=== PATIENT | male | born 1955 | race Hispanic/Latino ===

== ENCOUNTER 2018-02-04 18:19 | Inpatient (IN) | payer MEDICARE ==
[~2018-02-04] VITALS: Ht 167.6 cm; Wt 93.9 kg
[2018-02-04] MEDS ORDERED: MAG HYDROX/AL HYDROX/SIMETH ES 30 ML SUSP UDCUP ONE (19:26)
[2018-02-04] MEDS ORDERED: ONDANSETRON HCL 4 MG/2 ML VIAL ONE (19:26)
[2018-02-04] MEDS ORDERED: LIDOCAINE HCL 2% VISCOUS 15 ML UDCUP ONE (19:27)
[2018-02-04] MEDS ORDERED: KETOROLAC TROMETHAMINE 30MG/ML ONE (19:27)
[2018-02-04 19:54] LABS: BASOPHILS % (AUTO) 0.2 % (0.0-5.0); EOSINOPHILS % (AUTO) 0.2 % (0.0-8.0); HEMATOCRIT 41.9 % (42-54); LYMPHOCYTES % (AUTO) 9.8 % (21.0-51.0); MEAN CORPUSCULAR HEMOGLOBIN 30.7 pg (27.0-33.0); MEAN CORPUSCULAR HGB CONC 33.5 g/dL (32.0-36.0); MEAN CORPUSCULAR VOLUME 91.4 fL (79-99); MONOCYTES % (AUTO) 9.1 % (3.0-13.0); NEUTROPHILS % (AUTO) 80.7 % (40.0-77.0); PLATELET COUNT (AUTO) 207 K/uL (130-400); RED BLOOD CELL COUNT(AUTO) 4.58 MIL/uL (4.50-6.20); WHITE BLOOD COUNT (AUTO) 8.6 K/uL (4.8-10.8)
[2018-02-04 20:06] LABS: POTASSIUM 3.4 mmol/L (3.5-5.1)
[2018-02-04 20:11] LABS: ALBUMIN 3.2 g/dL (3.5-5.0); BILIRUBIN,TOTAL 5.1 mg/dL (0.2-1.0); TOTAL PROTEIN, SERUM 7.1 g/dL (6.0-8.3)
[2018-02-04 21:50] LABS: APPEARANCE,URINE CLOUDY (CLEAR); BILIRUBIN,URINE MODERATE (NEGATIVE); COLOR,URINE ORANGE (YELLOW); GLUCOSE, URINE (UA) NEGATIVE (NEGATIVE); KETONES,URINE NEGATIVE (NEGATIVE); LEUKOCYTE ESTERASE ,URINE NEGATIVE (NEGATIVE); NITRATE,URINE NEGATIVE (NEGATIVE); OCCULT BLOOD,URINE SMALL (NEGATIVE); PH,URINE 5.5 (5.0-8.0); PROTEIN,URINE TRACE (NEGATIVE)
[2018-02-04 21:56] LABS: BACTERIA,URINE Few /HPF (None Seen); MUCUS,URINE Few LPF (None Seen); RBC,URINE 0-1 /HPF (0-1); SQUAMOUS EPITHELIAL CELL,UR Rare /HPF (0-2)
[2018-02-04 21:57] LABS: AMORPHOUS SEDIMENT,UR Few /LPF (None Seen); HYALINE CASTS, URINE 0-1 /LPF (0-1 /LPF)
[2018-02-05] VITALS (20 sets, daily range): BP systolic 94–163; BP diastolic 52–78
[2018-02-05] MEDS: SODIUM CHLORIDE 0.9% 1000ML 1,000 ML IV SCH ×3 (00:55→18:02)
[2018-02-05] MEDS ORDERED: ONDANSETRON HCL 4 MG/2 ML VIAL IV PRN (01:00)
[2018-02-05] MEDS ORDERED: CYCL5TAB PO (02:02)
[2018-02-05] MEDS ORDERED: SIMV20TA6 PO (02:02)
[2018-02-05] MEDS ORDERED: IBUP-2070 PO (02:02)
[2018-02-05] MEDS ORDERED: PANT40TA25 PO (02:02)
[2018-02-05] MEDS ORDERED: TRAM50TA4 PO (02:02)
[2018-02-05] MEDS ORDERED: LISI1TAB11 PO (02:02)
[2018-02-05] MEDS ORDERED: LIDOCAINE HCL-MPF 1% 2ML VIAL IVP PRN (05:45)
[2018-02-05] MEDS: POTASSIUM CHLORIDE 20MEQ/100ML 100 ML IV PRN (06:15)
[2018-02-05] MEDS ORDERED: CYCLOBENZAPRINE HCL 10 MG TABLET PO PRN (07:30)
[2018-02-05] MEDS: FAMOTIDINE/PF 20 MG/2 ML VIAL IV SCH ×2 (08:18→19:36)
[2018-02-05] MEDS: HYDROCHLOROTHIAZIDE 25 MG TABLET PO SCH (08:18)
[2018-02-05] MEDS: LISINOPRIL 20 MG TABLET PO SCH (08:18)
[2018-02-05] MEDS: CEFTRIAXONE SODIUM 1 GM IVP SCH (08:18)
[2018-02-05 08:47] LABS: CHOLESTEROL 182 mg/dL (<200); HDL CHOLESTEROL 65 mg/dL (29-71); LDL DIRECT 125 mg/dL (0-99); TRIGLYCERIDES 45 mg/dL (30-200)
[2018-02-05] MEDS ORDERED: GADODIAMIDE 10 MMOL/20 ML ML IV ONE (13:14)
[2018-02-05] MEDS ORDERED: MORPHINE SULFATE 4 MG/1ML SYG ONE (13:25)
[2018-02-05] MEDS ORDERED: MIDAZOLAM HCL 1 MG/ML 2ML VIAL ONE (14:38)
[2018-02-05] MEDS ORDERED: FENTANYL CITRATE PF 50 MCG/1 ML 2ML VIAL ONE (14:39)
[2018-02-05] MEDS ORDERED: PROPOFOL 1000 MG/100 ML 100 ML IV ONE (14:39)
[2018-02-05] MEDS ORDERED: GLYCOPYRROLATE 0.2 MG/ML 5 ML VIAL ONE (14:40)
[2018-02-05] MEDS ORDERED: LIDOCAINE HCL-MPF 2% 5ML VIAL ONE (14:40)
[2018-02-05] MEDS ORDERED: IOHEXOL-350 50ML VIAL IV ONE (14:57)
[2018-02-05] MEDS ORDERED: ACETAMINOPHEN 325 MG TAB ONE (19:35)
[2018-02-05] MEDS: SIMVASTATIN 20 MG TABLET PO SCH (19:36)
[2018-02-06] MEDS: SODIUM CHLORIDE 0.9% 1000ML 1,000 ML IV SCH ×3 (01:53→21:36)
[2018-02-06 04:10] VITALS: BP 142/70
[2018-02-06 05:06] LABS: BASOPHILS % (AUTO) 0.7 % (0.0-5.0); EOSINOPHILS % (AUTO) 0.3 % (0.0-8.0); LYMPHOCYTES % (AUTO) 18.8 % (21.0-51.0); MEAN CORPUSCULAR HEMOGLOBIN 30.6 pg (27.0-33.0); MEAN CORPUSCULAR HGB CONC 33.6 g/dL (32.0-36.0); MEAN CORPUSCULAR VOLUME 91.2 fL (79-99); MONOCYTES % (AUTO) 9.1 % (3.0-13.0); NEUTROPHILS % (AUTO) 71.1 % (40.0-77.0); PLATELET COUNT (AUTO) 188 K/uL (130-400); RED BLOOD CELL COUNT(AUTO) 4.28 MIL/uL (4.50-6.20); WHITE BLOOD COUNT (AUTO) 6.2 K/uL (4.8-10.8)
[2018-02-06 05:17] LABS: ALBUMIN 2.6 g/dL (3.5-5.0); BILIRUBIN,TOTAL 6.1 mg/dL (0.2-1.0); POTASSIUM 3.7 mmol/L (3.5-5.1)
[2018-02-06] MEDS: CEFTRIAXONE SODIUM 1 GM IVP SCH (06:42)
[2018-02-06 08:00] VITALS: BP 110/58
[2018-02-06] MEDS: HYDROCHLOROTHIAZIDE 25 MG TABLET PO SCH (09:00)
[2018-02-06] MEDS: LISINOPRIL 20 MG TABLET PO SCH (09:00)
[2018-02-06] MEDS: FAMOTIDINE/PF 20 MG/2 ML VIAL IV SCH ×2 (09:30→21:35)
[2018-02-06 11:34] VITALS: BP 114/61
[2018-02-06 16:00] VITALS: BP 120/71
[2018-02-06] MEDS ORDERED: HYDRALAZINE HCL 20 MG/ML VIAL IV PRN (18:15)
[2018-02-06 20:00] VITALS: BP 135/72
[2018-02-06] MEDS: SIMVASTATIN 20 MG TABLET PO SCH (21:35)
[2018-02-06 23:45] VITALS: BP 119/61
[2018-02-07 04:00] VITALS: BP 115/52
[2018-02-07 04:39] LABS: HEMATOCRIT 38.7 % (42-54); MEAN CORPUSCULAR HEMOGLOBIN 31.9 pg (27.0-33.0); MEAN CORPUSCULAR HGB CONC 34.7 g/dL (32.0-36.0); PLATELET COUNT (AUTO) 220 K/uL (130-400); RED BLOOD CELL COUNT(AUTO) 4.21 MIL/uL (4.50-6.20); RED CELL DISTRIBUTION WIDTH 14.1 % (11.0-15.5); WHITE BLOOD COUNT (AUTO) 5.4 K/uL (4.8-10.8)
[2018-02-07 04:49] LABS: ALBUMIN 2.4 g/dL (3.5-5.0); BILIRUBIN,TOTAL 2.5 mg/dL (0.2-1.0); POTASSIUM 3.6 mmol/L (3.5-5.1)
[2018-02-07] MEDS: CEFTRIAXONE SODIUM 1 GM IVP SCH (06:37)
[2018-02-07] MEDS: MORPHINE SULFATE 2 MG/ML 1ML SYG IV PRN (06:49)
[2018-02-07 07:00] VITALS: BP 154/96
[2018-02-07] MEDS: LISINOPRIL 20 MG TABLET PO SCH (09:00)
[2018-02-07] MEDS: HYDROCHLOROTHIAZIDE 25 MG TABLET PO SCH (09:00)
[2018-02-07] MEDS: FAMOTIDINE/PF 20 MG/2 ML VIAL IV SCH ×2 (09:01→21:01)
[2018-02-07] MEDS: SODIUM CHLORIDE 0.9% 1000ML 1,000 ML IV SCH ×2 (09:39→17:53)
[2018-02-07 11:56] VITALS: BP 147/69
[2018-02-07 16:10] VITALS: BP 144/73
[2018-02-07 19:59] VITALS: BP 148/79
[2018-02-07] MEDS: SIMVASTATIN 20 MG TABLET PO SCH (21:01)
[2018-02-07 23:53] VITALS: BP 114/63
[2018-02-08] VITALS (19 sets, daily range): BP systolic 129–147; BP diastolic 68–85
[2018-02-08 04:27] LABS: BASOPHILS % (AUTO) 1.3 % (0.0-5.0); EOSINOPHILS % (AUTO) 2.1 % (0.0-8.0); HEMATOCRIT 39.8 % (42-54); LYMPHOCYTES % (AUTO) 24.7 % (21.0-51.0); MEAN CORPUSCULAR HEMOGLOBIN 31.2 pg (27.0-33.0); MEAN CORPUSCULAR HGB CONC 34.3 g/dL (32.0-36.0); MONOCYTES % (AUTO) 9.4 % (3.0-13.0); NEUTROPHILS % (AUTO) 62.5 % (40.0-77.0); PLATELET COUNT (AUTO) 214 K/uL (130-400); RED BLOOD CELL COUNT(AUTO) 4.38 MIL/uL (4.50-6.20); RED CELL DISTRIBUTION WIDTH 13.9 % (11.0-15.5); WHITE BLOOD COUNT (AUTO) 6.4 K/uL (4.8-10.8)
[2018-02-08 04:46] LABS: BILIRUBIN,DIRECT 0.7 mg/dL (0.0-0.3); BILIRUBIN,TOTAL 1.7 mg/dL (0.2-1.0); POTASSIUM 3.4 mmol/L (3.5-5.1)
[2018-02-08] MEDS: SODIUM CHLORIDE 0.9% 1000ML 1,000 ML IV SCH ×3 (05:39→22:12)
[2018-02-08] MEDS: CEFTRIAXONE SODIUM 1 GM IVP SCH (06:20)
[2018-02-08] MEDS ORDERED: LACTATED RINGERS 1000ML 1,000 ML IV ONE (08:01)
[2018-02-08] MEDS ORDERED: BUPIVACAINE/PF 0.5% 30ML VIAL ONE (08:09)
[2018-02-08] MEDS ORDERED: GLYCOPYRROLATE 1 MG/5 ML SYRINGE ONE (08:19)
[2018-02-08] MEDS ORDERED: DEXAMETHASONE SOD PHOSPHATE 10MG/ML 1ML VIAL ONE (08:19)
[2018-02-08] MEDS ORDERED: NEOSTIGMINE 5MG/5ML SYR IV ONE (08:19)
[2018-02-08] MEDS ORDERED: FENTANYL CITRATE PF 50 MCG/1 ML 2ML VIAL ONE (08:19)
[2018-02-08] MEDS ORDERED: LIDOCAINE PF 2% 5ML ABBOJECT ONE ×2 (08:19→08:20)
[2018-02-08] MEDS ORDERED: PROPOFOL 10 MG/ML 20ML VIAL IV ONE (08:19)
[2018-02-08] MEDS ORDERED: ROCURONIUM 10MG/1ML SYR 10 MG/ML ML ONE (08:19)
[2018-02-08] MEDS ORDERED: MIDAZOLAM HCL 1 MG/ML 2ML VIAL ONE (08:19)
[2018-02-08] MEDS ORDERED: EPHEDRINE SULFATE 50 MG/ML AMPULE ONE (08:52)
[2018-02-08] MEDS ORDERED: CEFAZOLIN SODIUM 1 GM VIAL ONE (08:54)
[2018-02-08] MEDS: LACTATED RINGERS 1000ML 1,000 ML IV SCH ×2 (10:47→22:12)
[2018-02-08] MEDS: MORPHINE SULFATE 2 MG/ML 1ML SYG IV PRN ×3 (10:48→21:41)
[2018-02-08] MEDS: HYDROCHLOROTHIAZIDE 25 MG TABLET PO SCH (13:15)
[2018-02-08] MEDS: FAMOTIDINE/PF 20 MG/2 ML VIAL IV SCH ×2 (13:15→21:17)
[2018-02-08] MEDS: LISINOPRIL 20 MG TABLET PO SCH (13:15)
[2018-02-08] MEDS ORDERED: POTASSIUM CHLORIDE 20MEQ/100ML 100 ML IV PRN (13:30)
[2018-02-08] MEDS ORDERED: POTASSIUM CHLORIDE 10% ELIXIR 20 MEQ/15 ML UDCUP PO PRN (13:30)
[2018-02-08] MEDS ORDERED: LIDOCAINE HCL-MPF 1% 2ML VIAL IVP PRN (13:30)
[2018-02-08] MEDS: ACETAMINOPHEN 325 MG TAB PO PRN (15:02)
[2018-02-08] MEDS: POTASSIUM CHLORIDE 20 MEQ ERTAB PO PRN ×2 (15:03→17:32)
[2018-02-08] MEDS: DOCUSATE SODIUM 100 MG CAP PO SCH (21:17)
[2018-02-08] MEDS: SIMVASTATIN 20 MG TABLET PO SCH (21:17)
[2018-02-09] VITALS (7 sets, daily range): BP systolic 120–139; BP diastolic 43–75
[2018-02-09] MEDS: SODIUM CHLORIDE 0.9% 1000ML 1,000 ML IV SCH (00:52)
[2018-02-09] MEDS: MORPHINE SULFATE 2 MG/ML 1ML SYG IV PRN (03:50)
[2018-02-09 04:33] LABS: BASOPHILS % (AUTO) 0.7 % (0.0-5.0); EOSINOPHILS % (AUTO) 0.8 % (0.0-8.0); HEMATOCRIT 41.5 % (42-54); LYMPHOCYTES % (AUTO) 4.2 % (21.0-51.0); MEAN CORPUSCULAR HEMOGLOBIN 31.9 pg (27.0-33.0); MEAN CORPUSCULAR HGB CONC 34.4 g/dL (32.0-36.0); MEAN CORPUSCULAR VOLUME 92.6 fL (79-99); MONOCYTES % (AUTO) 3.7 % (3.0-13.0); NEUTROPHILS % (AUTO) 90.6 % (40.0-77.0); PLATELET COUNT (AUTO) 216 K/uL (130-400); RED BLOOD CELL COUNT(AUTO) 4.48 MIL/uL (4.50-6.20); RED CELL DISTRIBUTION WIDTH 13.9 % (11.0-15.5); WHITE BLOOD COUNT (AUTO) 10.9 K/uL (4.8-10.8)
[2018-02-09 04:42] LABS: ALBUMIN 2.7 g/dL (3.5-5.0); BILIRUBIN,DIRECT 0.7 mg/dL (0.0-0.3); CREATININE 0.9 mg/dL (0.5-1.5); POTASSIUM 3.9 mmol/L (3.5-5.1); TOTAL PROTEIN, SERUM 6.4 g/dL (6.0-8.3)
[2018-02-09] MEDS: CEFTRIAXONE SODIUM 1 GM IVP SCH (05:42)
[2018-02-09] MEDS: DOCUSATE SODIUM 100 MG CAP PO SCH ×2 (09:57→20:13)
[2018-02-09] MEDS: HYDROCHLOROTHIAZIDE 25 MG TABLET PO SCH (09:57)
[2018-02-09] MEDS: LISINOPRIL 20 MG TABLET PO SCH (09:57)
[2018-02-09] MEDS: ACETAMINOPHEN 325 MG TAB PO PRN (09:58)
[2018-02-09] MEDS: FAMOTIDINE/PF 20 MG/2 ML VIAL IV SCH ×2 (10:03→20:13)
[2018-02-09] MEDS: LACTATED RINGERS 1000ML 1,000 ML IV SCH (20:13)
[2018-02-09] MEDS: SIMVASTATIN 20 MG TABLET PO SCH (20:13)
[2018-02-10] MEDS: LACTATED RINGERS 1000ML 1,000 ML IV SCH (01:42)
[2018-02-10 04:37] VITALS: BP 113/62
[2018-02-10 04:50] LABS: BASOPHILS % (AUTO) 0.6 % (0.0-5.0); EOSINOPHILS % (AUTO) 2.6 % (0.0-8.0); HEMATOCRIT 41.3 % (42-54); LYMPHOCYTES % (AUTO) 19.8 % (21.0-51.0); MEAN CORPUSCULAR HEMOGLOBIN 30.6 pg (27.0-33.0); MEAN CORPUSCULAR HGB CONC 33.2 g/dL (32.0-36.0); MEAN CORPUSCULAR VOLUME 91.9 fL (79-99); NUCLEATED RED BLOOD CELLS 0.1 % (0.0-0.19); PLATELET COUNT (AUTO) 209 K/uL (130-400); RED BLOOD CELL COUNT(AUTO) 4.49 MIL/uL (4.50-6.20); RED CELL DISTRIBUTION WIDTH 14.1 % (11.0-15.5); WHITE BLOOD COUNT (AUTO) 6.9 K/uL (4.8-10.8)
[2018-02-10 05:08] LABS: ALBUMIN 2.7 g/dL (3.5-5.0); BILIRUBIN,TOTAL 1.6 mg/dL (0.2-1.0); TOTAL PROTEIN, SERUM 6.6 g/dL (6.0-8.3)
[2018-02-10] MEDS: POTASSIUM CHLORIDE 20 MEQ ERTAB PO PRN ×3 (05:14→12:24)
[2018-02-10 08:00] VITALS: BP 127/87
[2018-02-10] MEDS: DOCUSATE SODIUM 100 MG CAP PO SCH (08:35)
[2018-02-10] MEDS: CEFTRIAXONE SODIUM 1 GM IVP SCH (08:35)
[2018-02-10] MEDS: LISINOPRIL 20 MG TABLET PO SCH (08:36)
[2018-02-10] MEDS: FAMOTIDINE/PF 20 MG/2 ML VIAL IV SCH (08:37)
[2018-02-10] MEDS: HYDROCHLOROTHIAZIDE 25 MG TABLET PO SCH (08:38)
[2018-02-10] MEDS: POTASSIUM CHLORIDE 20MEQ/100ML 100 ML IV PRN (08:42)
[2018-02-10 11:00] VITALS: BP 120/69
== END 2018-02-10 15:46 | disposition home or self-care (01) | DRG 417 ==
LOC: EDH 18:19 → EDHIP 02-05 00:10 → OBSVTOIN 02-05 00:10 → 4BH 02-05 01:55
PROVIDERS: ADMIT Hospitalist; ATTEND Hospitalist
PROC: 0F798ZZ Dilation of Common Bile Duct, Via Natural or Artificial Opening Endoscopic (ICD-10-PCS; 2018-02-05)
PROC: 0FT44ZZ Resection of Gallbladder, Percutaneous Endoscopic Approach (ICD-10-PCS; principal; 2018-02-08 08:00)
DX: K80.67 Calculus of gallbladder and bile duct with acute and chronic cholecystitis with obstruction (principal); E43 Unspecified severe protein-calorie malnutrition; K57.90 Diverticulosis of intestine, part unspecified, without perforation or abscess without bleeding; I11.9 Hypertensive heart disease without heart failure; E78.5 Hyperlipidemia, unspecified; E78.00 Pure hypercholesterolemia, unspecified; K44.9 Diaphragmatic hernia without obstruction or gangrene; K83.8 Other specified diseases of biliary tract; K76.9 Liver disease, unspecified; K76.0 Fatty (change of) liver, not elsewhere classified; Z79.899 Other long term (current) drug therapy; Z68.33 Body mass index [BMI] 33.0-33.9, adult
CPT/HCPCS: 36415; 43262; 43264; 71045; 74176; 74330; 76705; 80048; 80053; 80061; 81001; 82150; 82247; 82248; 82550; 82948; 83605; 83690; 85025; 85027; 87040; 88304; 93005; A4218; A9579; C1769; C1773; J0690; J0696; J1100; J1885; J2001; J2250; J2270; J2405; J2704; J2710; J3010; J3480; J3490; J7030; J7120; Q9967

== ENCOUNTER 2019-03-24 10:11 | Emergency (ER) | payer MEDICARE ==
[~2019-03-24 10:11] MED LIST: CYCL5TAB PO; IBUP-2070 PO; LISI1TAB28 PO; PANT40TA25 PO; SIMV-43 PO; TRAM50TA4 PO
[2019-03-24] MEDS ORDERED: ONDANSETRON HCL 4 MG/2 ML VIAL ONE (10:51)
[2019-03-24] MEDS ORDERED: CEFTRIAXONE SODIUM 1 GM ONE (11:02)
[2019-03-24] MEDS ORDERED: KETOROLAC TROMETHAMINE 30MG/ML ONE (11:03)
[2019-03-24] MEDS ORDERED: SODIUM CHLORIDE 0.9% 50 ML IV ONE (11:03)
[2019-03-24 11:11] LABS: BASOPHILS % (AUTO) 0.3 % (0.0-5.0); HEMATOCRIT 45.2 % (42-54); LYMPHOCYTES % (AUTO) 9.5 % (21.0-51.0); MEAN CORPUSCULAR HEMOGLOBIN 29.2 pg (27.0-33.0); MEAN CORPUSCULAR HGB CONC 33.2 g/dL (32.0-36.0); MEAN CORPUSCULAR VOLUME 88.1 fL (79-99); MONOCYTES % (AUTO) 6.2 % (3.0-13.0); NEUTROPHILS % (AUTO) 83.5 % (40.0-77.0); PLATELET COUNT (AUTO) 220 K/uL (130-400); RED BLOOD CELL COUNT(AUTO) 5.13 MIL/uL (4.50-6.20); RED CELL DISTRIBUTION WIDTH 13.2 % (11.0-15.5); WHITE BLOOD COUNT (AUTO) 10.2 K/uL (4.8-10.8)
[2019-03-24 11:15] LABS: POTASSIUM 3.8 mmol/L (3.5-5.1)
[2019-03-24 11:21] LABS: ALBUMIN 3.5 g/dL (3.5-5.0); BILIRUBIN,TOTAL 1.9 mg/dL (0.2-1.0); TOTAL PROTEIN, SERUM 7.7 g/dL (6.0-8.3)
== END 2019-03-24 12:43 | disposition home or self-care (01) ==
LOC: EDH 10:11
DX: J02.0 Streptococcal pharyngitis (principal); H72.90 Unspecified perforation of tympanic membrane, unspecified ear; E78.5 Hyperlipidemia, unspecified; I10 Essential (primary) hypertension; Z90.49 Acquired absence of other specified parts of digestive tract; Z98.890 Other specified postprocedural states
CPT/HCPCS: 36415; 70480; 80053; 85025; 87804 ×2; 87880; 96361; 96374; 96375; 99285; J0696; J1885; J2405

== ENCOUNTER 2019-09-24 09:06 | Emergency (ER) | payer MEDICARE ==
[~2019-09-24 09:06] MED LIST changes: -LISI1TAB28 PO; +LISI1TAB51 PO; -PANT40TA25 PO; +PANT40TA54 PO
[2019-09-24 09:59] LABS: BASOPHILS % (AUTO) 0.2 % (0.0-5.0); HEMATOCRIT 44.4 % (42-54); MEAN CORPUSCULAR HEMOGLOBIN 29.7 pg (27.0-33.0); MEAN CORPUSCULAR HGB CONC 34.7 g/dL (32.0-36.0); MEAN CORPUSCULAR VOLUME 85.5 fL (79-99); MONOCYTES % (AUTO) 4.6 % (3.0-13.0); NEUTROPHILS % (AUTO) 85.8 % (40.0-77.0); PLATELET COUNT (AUTO) 201 K/uL (130-400); RED BLOOD CELL COUNT(AUTO) 5.19 MIL/uL (4.50-6.20); WHITE BLOOD COUNT (AUTO) 5.7 K/uL (4.8-10.8)
[2019-09-24] MEDS ORDERED: METHYLPREDNISOLONE SOD SUCC 40MG/ML 1ML ONE (10:43)
[2019-09-24] MEDS ORDERED: CEFTRIAXONE SODIUM 2 GM VIAL ONE (10:44)
[2019-09-24] MEDS ORDERED: SODIUM CHLORIDE 0.9% 1000ML 1,000 ML IV ONE (10:44)
[2019-09-24] MEDS ORDERED: ONDANSETRON HCL 4 MG/2 ML VIAL ONE (10:44)
[2019-09-24 10:45] LABS: INR 0.89 (0.85-1.15); PARTIAL THROMBOPLASTIN TIME 28.7 SEC (26.3-35.5); PROTHROMBIN TIME 9.7 SEC (9.6-11.6)
[2019-09-24] MEDS ORDERED: SODIUM CHLORIDE 0.9% 100 ML IV ONE (10:46)
[2019-09-24 10:55] LABS: ALANINE AMINOTRANSFERASE 77 U/L (12-78); ASPARTATE AMINOTRANSFERASE 81 U/L (10-37); BILIRUBIN,TOTAL 1.1 mg/dL (0.2-1.0); CARBON DIOXIDE 28 mmol/L (21-32); CHLORIDE 94 mmol/L (101-111); GLOMERULAR FILTR. RATE CALC 80 mL/min (>60); GLUCOSE,RANDOM 117 mg/dL (70-105); MYOGLOBIN 253 ng/mL (10-92); SODIUM SERUM 132 mmol/L (136-145); TOTAL PROTEIN, SERUM 7.7 g/dL (6.0-8.3); TROPONIN I < 0.04 ng/mL (0.00-0.06); UREA NITROGEN, BLOOD 17 mg/dL (7-18)
[2019-09-24 11:21] LABS: CREATINE KINASE, TOTAL 641 U/L (21-232); POTASSIUM 2.7 mmol/L (3.5-5.1)
[2019-09-24] MEDS ORDERED: MAGNESIUM OXIDE 400 MG TABLET PO ONE (12:35)
[2019-09-24] MEDS ORDERED: POTASSIUM BICARB/CIT AC 25 MEQ TABLET.EFF ONE (12:36)
== END 2019-09-24 14:47 | disposition home or self-care (01) ==
LOC: EDH 09:06
DX: U07.1 COVID-19 (principal); J12.89 Other viral pneumonia; E86.0 Dehydration; E11.9 Type 2 diabetes mellitus without complications; I10 Essential (primary) hypertension; E78.5 Hyperlipidemia, unspecified; Z90.49 Acquired absence of other specified parts of digestive tract
CPT/HCPCS: 36415; 71045; 80053; 82550; 82728; 83605; 83874; 84145; 84484; 85025; 85378; 85610; 85730; 93005; 96374; 96375; 99285; J0696; J2405; J2920; J7030; U0003